=== PATIENT | male | born 1970 | race Caucasian/White ===

== ENCOUNTER 2023-05-29 06:12 | Day surgery (SDC) | payer OTHER, SELFPAY ==
[2023-05-29] VITALS (9 sets, daily range): BP systolic 119–132; BP diastolic 76–101; PULSE 47–68; RESP 16; TEMP 36.1–36.4; O2SAT 96–98; BMI 29.0
[2023-05-29] MEDS: Lactated Ringers 1,000 ML 15 ML IV (06:45)
--- NOTE | 2023-05-29 07:06 | H&P.OPEN ---
HPI - General General Date of Service: 05/29/23 HPI Narrative OSMAN BLOOD, is a 52 M who presents for diagnostic colonoscopy due to positive Cologuard. Patient has had previous colonoscopy. Patient has bowel movements daily denies any blood. Patient denies any chronic abdominal pain/nausea/vomiting/reflux. Patient denies any family history of colon cancer. [facility] Medical History (Updated 05/23/23 @ 13:01 by Annita Watkins) Cavernous hemangioma of brain Former smoker Leg cramps Seizures Wears contact lenses Home Medications cetirizine 10 mg tablet (24Hour Allergy) 10 mg PO DAILY 05/23/23 [History Last Taken 05/29/23] Allergy/AdvReac Type Severity Reaction Status Date / Time No Known Allergies Allergy Verified 05/29/23 06:35 Surgical History S/P inguinal hernia repair Social History (Updated 04/26/23 @ 15:21 by Kathleen Daigle LPN) Smoking Status: Former smoker alcohol intake: current alcohol intake frequency: a few times a month substance use type: does not use Past Medical/Surgical History Planned Operation Planned Operative Procedure/s: CSCOPE Previous Hospitalizations/Surgeries HX Hospitalizations: No Any Problems With Anesthesia: No You/Your Family Experience Fever (Hyperthermia) With Anes: No Cholinesterase deficiency: No Cardiovascular Hx Hypertension: No Respiratory Hx Sleep Apnea: No Hx Respiratory Tract Infection/Cold (presently): No Do You Snore Loudly (louder than talking or can be heard): Yes Do You Often Feel Tired/ Fatigued/ Sleepy Dring Daytime?: No Has Anyone Observed You Stop Breathing During Sleep?: No Result (for STOP score): Negative Smoking Status: Former smoker Neurological Does patient have nerve stimulator: No Reproduction : No Allergies No Known Allergies Allergy (Verified 05/29/23 06:35) Discharge Is Pt Admitted From a Correction, or a Long-Term: No After D/C, Where Do you Plan to Go: Return Home Vital Signs Vital Signs Vital Signs: 05/29/23 06:37 05/29/23 06:37 Temperature 97.6 F L Temperature Source Temporal Pulse Rate 68 Respiratory Rate 16 Respiratory Pattern Normal Blood Pressure 132/76 H Blood Pressure Mean 94 Blood Pressure Source Monitor Blood Pressure Position Semi-Fowlers Blood Pressure Location Right Arm Pulse Ox 98 Oxygen Delivery Method Room Air Weight Weight: 174 lb 2.643 oz Body Mass Index (BMI) 29.0 Physical Exam Const alert, oriented x3 and no apparent distress HEENT normocephalic and head/scalp atraumatic Resp normal respiratory effort Cardio regular rate GI soft to palpation and non-tender; Negative for non-distended Palpation: Negative for guarding Extremity no clubbing, cyanosis or edema Skin no rashes or lesions noted Neuro CN's II-XII intact bilaterally Psych mental status grossly normal Assessment & Plan Assessment/Plan (1) Positive colorectal cancer screening using Cologuard test: Surgery Risks - Colonoscopy I discussed with the patient the risks of the procedure: Yes Risks Include but are not Limited To: Risks include but are not limited to: Bleeding, perforation requiring further surgery, inability to complete colonoscopy requiring barium enema.
--- NOTE | 2023-05-29 07:30 | COLBX_PTH ---
PATIENT: OSMAN BLOOD LOC: EN U#:[id number] AGE/SX: 52/M ROOM: RE05/29/[address]: Dr. Crys Hodgson MD : 1970 BED: DIS: 05/29/2023 SPEC #: [id number] RECD: 05/29/23 11:59 STATUS: LANRE KELLY #: [id number] SEB: 05/29/23 07:[address]: Crys Hodgson DEPT: SURGICAL PATHOLOGY RECD BY: Zee Mata ENTERED: 05/29/23 12:00 SP TYPE: COLON BX SAUD DR: Dr. Ramiro Bazan DO Tissues: A - Ascending colon B - Transverse colon C - Descending colon D - Descending colon E - Rectum, NOS Procedures: Surgery Specimen Level IV HEADER OPERATION: Colonoscopy with biopsy PRE-OP DIAGNOSIS: Positive colorectal cancer screening TISSUE SUBMITTED: A - Ascending colon polyps x3 biopsy, B - Transverse colon polyps x2 biopsy, C - Descending colon polyp biopsy, D - Descending colon polyp #2, E - Rectal polyps x4 MICROSCOPIC DIAGNOSIS A. Ascending colon polyp, biopsy: Fragments of tubular adenoma. B. Transverse colon polyps, biopsy: Fragments of tubular adenoma. C. Descending colon polyp, biopsy: Tubular adenoma. D. Descending colon polyps, biopsy: Fragments of tubular adenoma. E. Rectal polyps, biopsy: Fragments of tubular adenoma. AM:eran 05/31/2023 MICROSCOPIC DESCRIPTION Slides are reviewed. GROSS DESCRIPTION A - Received in fixative is one container labeled with the patient's name and designated ascending polyps x3 biopsy. The specimen consists of multiple irregular fragments of light andrade soft tissue that in aggregate measure 1.5 x 0.5 x 0.1 cm. The specimen is totally submitted in one cassette. B - Received in fixative is one container labeled with the patient's name and designated transverse polyps x2 biopsy. The specimen consists of multiple irregular fragments of light andrade soft tissue that in aggregate measure 2.5 x 0.3 x 0.1 cm. The specimen is totally submitted in one cassette. C - Received in fixative is one container labeled with the patient's name and designated descending polyp biopsy. The specimen consists of two irregular fragments of light andrade soft tissue that in aggregate measure 0.4 x 0.2 x 0.1 cm. The specimen is totally submitted in one cassette. D - Received in fixative is one container labeled with the patient's name and designated descending polyp #2. The specimen consists of multiple irregular fragments of light andrade soft tissue that in aggregate measure 1.0 x 0.4 x 0.1 cm. The specimen is totally submitted in one cassette. E - Received in fixative is one container labeled with the patient's name and designated rectal polyps x4. The specimen consists of multiple irregular fragments of light andrade soft tissue that in aggregate measure 2.0 x 0.5 x 0.1 cm. The specimen is totally submitted in one cassette. / SJ:rg 05/29/2023 TC:5 CPT: 41550 x5
--- NOTE | 2023-05-29 08:04 | OP.CCLET_ITS ---
05/29/2023 Ramiro Bazan [address] [place] [address] Re : Colonoscopy procedure for Terrance Guardado Dear Dr. Bazan This procedure was performed on Monday, May 29, 2023. My impressions and recommendations are as follows: Impressions : - Nine less than 5 mm polyps in the rectum, in the descending colon, in the transverse colon and in the ascending colon, removed with a cold biopsy forceps. Resected and retrieved. - Three 3 to 6 mm polyps at the recto-sigmoid colon and in the descending colon, removed with a hot snare. Resected and retrieved. - The examination was otherwise normal on direct and retroflexion views. Recommendations : - Discharge patient to home. - Resume previous diet. - Continue present medications. - Await pathology results. - Repeat colonoscopy in 3 years for surveillance of multiple polyps. My findings are described in the full procedure note, which is enclosed. If I can be of further assistance, please feel free to contact me at Doctor phone number(s): , Work: . Sincerely, MD Crys Ayoub MD 05/29/2023 8:03:19 AM This report has been signed electronically.
--- NOTE | 2023-05-29 08:04 | OP.COLON_ITS ---
Patient Name: Terrance Guardado Procedure Date: 05/29/2023 7:03 AM Date of : 1970 Age: 52 Procedure: Colonoscopy Indications: Positive Cologuard test Providers: Crys Hodgson MD Referring MD: Crys Hodgson MD Medicines: Monitored Anesthesia Care Patient Profile: This is a 52 year old male. Last Colonoscopy: none. The patient's first colonoscopy is today. Complications: No immediate complications. Procedure: Pre-Anesthesia Assessment: - Prior to the procedure, a History and Physical was performed, and patient medications and allergies were reviewed. The patient's tolerance of previous anesthesia was also reviewed. The risks and benefits of the procedure and the sedation options and risks were discussed with the patient. All questions were answered, and informed consent was obtained. Prior Anticoagulants: The patient has taken no anticoagulant or antiplatelet agents. ASA Grade Assessment: Per anesthesia. After reviewing the risks and benefits, the patient was deemed in satisfactory condition to undergo the procedure. After I obtained informed consent, the scope was passed under direct vision. Throughout the procedure, the patient's blood pressure, pulse, and oxygen saturations were monitored continuously. The Colonoscope was introduced through the anus and advanced to the cecum, identified by the appendiceal orifice, ileocecal valve and palpation. The colonoscopy was performed without difficulty. The patient tolerated the procedure well. The quality of the bowel preparation was good. Scope In: 7:28:18 AM Scope Withdrawal Time 0 hours 25 minutes 18 seconds Scope Out: 7:57:24 AM Total Procedure Duration Time 0 hours 29 minutes 6 seconds Findings: The perianal and digital rectal examinations were normal. Nine sessile polyps were found in the rectum, descending colon, transverse colon and ascending colon. The polyps were less than 5 mm in size. These polyps were removed with a cold biopsy forceps. Resection and retrieval were complete. Three semi-pedunculated polyps were found in the recto-sigmoid colon and descending colon. The polyps were 3 to 6 mm in size. These polyps were removed with a hot snare. Resection and retrieval were complete. The exam was otherwise without abnormality on direct and retroflexion views. Impression: - Nine less than 5 mm polyps in the rectum, in the descending colon, in the transverse colon and in the ascending colon, removed with a cold biopsy forceps. Resected and retrieved. - Three 3 to 6 mm polyps at the recto-sigmoid colon and in the descending colon, removed with a hot snare. Resected and retrieved. - The examination was otherwise normal on direct and retroflexion views. Recommendation: - Discharge patient to home. - Resume previous diet. - Continue present medications. - Await pathology results. - Repeat colonoscopy in 3 years for surveillance of multiple polyps. Procedure Code(s): --- Professional --- 86292, Colonoscopy, flexible; with removal of tumor(s), polyp(s), or other lesion(s) by snare technique 23812, 59, Colonoscopy, flexible; with biopsy, single or multiple Diagnosis Code(s): --- Professional --- D12.8, Benign neoplasm of rectum D12.3, Benign neoplasm of transverse colon (hepatic flexure or splenic flexure) D12.2, Benign neoplasm of ascending colon D12.7, Benign neoplasm of rectosigmoid junction D12.4, Benign neoplasm of descending colon R19.5, Other fecal abnormalities CPT copyright 2021 [employer]. All rights reserved. The codes documented in this report are preliminary and upon trial manager review may be revised to meet current compliance requirements. MD Crys Ayoub MD 05/29/2023 8:03:19 AM This report has been signed electronically. Number of Addenda: 0 Note Initiated On: 05/29/2023 7:03 AM
== END 2023-05-29 08:57 | disposition home or self-care (01) ==
LOC: EN 06:13 → AC 06:14
PROVIDERS: PCP Family Medicine; Referring Provider Surgery; Visit Provider Surgery
PROC: 0DJD8ZZ Inspection of Lower Intestinal Tract, Via Natural or Artificial Opening Endoscopic (ICD-10-PCS; CPT 45378; principal; 2023-05-29 07:25)
DX: D12.2 Benign neoplasm of ascending colon (principal); Z87.891 Personal history of nicotine dependence; D12.3 Benign neoplasm of transverse colon; D12.4 Benign neoplasm of descending colon; D12.8 Benign neoplasm of rectum; Z87.19 Personal history of other diseases of the digestive system
CPT/HCPCS: 45385; 45380; 88305; J7120; J2405